=== PATIENT | male | born 1995 | race Caucasian/White ===

== ENCOUNTER 2016-04-25 10:10 | Emergency (ER) | payer SELFPAY ==
--- NOTE | 2016-04-25 10:20 | ER Document Report ---
ED Medical Screen (RME) - General Stated Complaint: SUTURE REMOVAL Time seen by provider: 10:18 Mode of Arrival: Ambulatory Information source: Patient Notes: 21 yo male presents to ed for suture removal to face last Thursday. TRAVEL OUTSIDE OF THE [place] IN LAST 30 DAYS: No - HPI Onset: Last week Onset/Duration: Gradual Quality of pain: Other - sore Severity: Moderate Pain Level: 3 Associated Symptoms: Other - healing laceration to mouth Exacerbated by: Denies Relieved by: Denies Similar symptoms previously: Yes Recently seen / treated by doctor: Yes - Related Data Smoking: Cigarettes, Less than 1 pack/day Frequency of alcohol use: Occasional Drug Abuse: None Allergies/Adverse Reactions: No Known Allergies Allergy (Verified 04/25/16 10:18) Past Medical History Pulmonary Medical History: Reports: Hx Asthma - has not used inhaler since age 11 - Immunizations Hx Diphtheria, Pertussis, Tetanus Vaccination: Yes
[2016-04-25 10:21] VITALS: BP 143/87
--- NOTE | 2016-04-25 10:33 | ER Document Report ---
HPI - HPI Patient complains to provider of: suture removle Onset: Last week Quality of pain: Other - sore Pain Level: 3 Context: 21 yo male here for suture removal upper lip placed 1 week ago after dogbite. No drainage. Associated Symptoms: None Exacerbated by: Denies Relieved by: Denies Similar symptoms previously: No Recently seen / treated by doctor: Yes - ROS ROS below otherwise negative: Yes Systems Reviewed and Negative: Yes All other systems reviewed and negative - REPRODUCTIVE Reproductive: DENIES: : - DERM Skin Color: Normal Past Medical History - General Information source: Patient - Social History Smoking Status: Current Every Day Smoker Chew tobacco use (# tins/day): No Frequency of alcohol use: Occasional Drug Abuse: None Lives with: Parents Family History: None Patient has suicidal ideation: No Patient has homicidal ideation: No Pulmonary Medical History: Reports: Hx Asthma - has not used inhaler since age 11 Surgical Hx: Negative - Immunizations Hx Diphtheria, Pertussis, Tetanus Vaccination: Yes Vertical Provider Document - CONSTITUTIONAL Agree With Documented VS: Yes Exam Limitations: No Limitations General Appearance: No Apparent Distress - INFECTION CONTROL TRAVEL OUTSIDE OF THE [place] IN LAST 30 DAYS: No - HEENT Notes: crusted upper lip suture flap and linear. explained and pt already knew that the flap may not survive, and to not pick at it, let it heal under the scab. - NECK Neck: Supple. negative: Lymphadenopathy-Left, Lymphadenopathy-Right - RESPIRATORY O2 Sat by Pulse Oximetry: 98 - NEURO Level of Consciousness: Awake, Alert, Appropriate - DERM Integumentary: Laceration Course - Vital Signs Vital signs: Temp Pulse Resp BP Pulse Ox 97.9 F 78 20 143/87 H 98 04/25/16 10:19 04/25/16 10:19 04/25/16 10:19 04/25/16 10:19 04/25/16 10:19 Discharge - Discharge Clinical Impression: suture removal Condition: Good Disposition: HOME, SELF-CARE Instructions: Suture Removal Additional Instructions: vaseline to lip to keep it moist let the skin heal on its own do not pick at it to er any conerns
== END 2016-04-25 11:07 | disposition home or self-care (01) ==
LOC: ER 10:10
DX: S01.551D Open bite of lip, subsequent encounter (principal); W54.0XXD Bitten by dog, subsequent encounter; F17.200 Nicotine dependence, unspecified, uncomplicated; J45.909 Unspecified asthma, uncomplicated

== ENCOUNTER 2016-08-16 22:16 | Emergency (ER) | payer OTHER ==
[2016-08-16 23:38] VITALS: BP 147/83
[2016-08-17] MEDS ORDERED: HYDROCODONE/ACETAMINOPHEN 5-325 MG 6 TAB/DSPK PO PRN (00:44)
--- NOTE | 2016-08-17 00:46 | ER Document Report ---
HPI - HPI Patient complains to provider of: left foot injury Pain Level: 4 Context: Patient is a 21-year-old male that comes emergency department for chief complaint of left ankle injury, he states that he hyperextended his foot on the ground yesterday, today he woke up with it swollen and painful. He states he did not have pain right after the injury. He spent today on his feet at the job. He denies any other injuries or areas of pain, denies any daily medications. - REPRODUCTIVE Reproductive: DENIES: : - DERM Skin Color: Normal, [place] Past Medical History - General Information source: Patient - Social History Smoking Status: Never Smoker Frequency of alcohol use: None Drug Abuse: None Lives with: Family Family History: None Patient has suicidal ideation: No Patient has homicidal ideation: No Pulmonary Medical History: Reports: Hx Asthma - has not used inhaler since age 11 Renal/ Medical History: Denies: Hx Peritoneal Dialysis Surgical Hx: Negative - Immunizations Hx Diphtheria, Pertussis, Tetanus Vaccination: Yes Vertical Provider Document - CONSTITUTIONAL General Appearance: WD/WN, No Apparent Distress, Obese - INFECTION CONTROL TRAVEL OUTSIDE OF THE [place] IN LAST 30 DAYS: No - HEENT HEENT: Atraumatic, Normocephalic - NECK Neck: Normal Inspection - RESPIRATORY Respiratory: Breath Sounds Normal, No Respiratory Distress O2 Sat by Pulse Oximetry: 100 - CARDIOVASCULAR Cardiovascular: Regular Rate, Regular Rhythm - GI/ABDOMEN Gastrointestinal: Abdomen Soft, Abdomen Non-Tender - MUSCULOSKELETAL/EXTREMETIES Musculoskeletal/Extremeties: Tender - Left ankle with generalized mild tenderness, there is definite tenderness over the dorsal aspect of the foot in the ATF distribution, normal lower extremity exam otherwise. - NEURO Level of Consciousness: Awake, Alert, Appropriate Motor/Sensory: No Motor Deficit, No Sensory Deficit - DERM Integumentary: Warm, Dry, No Rash Course - Re-evaluation Re-evalutation: Examination consistent with sprain of ATF. X-rays unremarkable. Patient declines any immobilization, agrees to crutches, declines work release note, states satisfaction about x-ray results. - Vital Signs Vital signs: Temp Pulse Resp BP Pulse Ox 98.3 F 70 14 147/83 H 100 08/16/16 23:34 08/16/16 23:34 08/16/16 23:34 08/16/16 23:34 08/16/16 23:34 - Diagnostic Test Radiology reviewed: Image reviewed, Reports reviewed Discharge - Discharge Clinical Impression: Left ankle injury Qualifiers: Encounter type: initial encounter Qualified Code(s): S99.912A - Unspecified injury of left ankle, initial encounter Condition: Stable Disposition: HOME, SELF-CARE Additional Instructions: Examination is consistent with sprain of the ATF ligament. Recommend elevating your leg, applying ice 3-4 times a day for 10-15 minutes, take the naproxen, and use the crutches. Do this for about 3 days or until swelling and pain resolves. If symptoms continue please follow-up with orthopedics referral. Return to emergency department for any concerning or worsening symptoms including redness, severe pain or swelling, etc. Prescriptions: Naproxen 500 mg PO BID #20 tablet
== END 2016-08-17 01:16 | disposition home or self-care (01) ==
LOC: ER 22:16
DX: S99.912A Unspecified injury of left ankle, initial encounter (principal); S99.922A Unspecified injury of left foot, initial encounter; X58.XXXA Exposure to other specified factors, initial encounter
CPT/HCPCS: 99283

== ENCOUNTER 2018-08-18 11:18 | Emergency (ER) | payer SELFPAY ==
[2018-08-18 11:32] VITALS: BP 151/86
[2018-08-18] MEDS ORDERED: LIDOCAINE 2% VISCOUS SOLN 20 ML UDCUP PO ONE (12:15)
[2018-08-18] MEDS ORDERED: PENICILLIN V POTASSIUM 500 MG TABLET PO ONE (12:16)
--- NOTE | 2018-08-18 12:17 | ER Document Report ---
HPI - HPI Time Seen by Provider: 08/18/18 12:01 Pain Level: 5 Notes: This is a 23-year-old male presenting to the emergency department with chief complaint of dental pain. For the last 5 days to the back teeth on the lower left side. Patient denies any fevers or swelling. - EENT EENT: DENIES: Sore Throat, Ear Pain, Eye problems - NEURO Neurology: DENIES: Headache, Weakness, Vision blurred, Dizzinesss / Vertigo - CARDIOVASCULAR Cardiovascular: DENIES: Chest pain - RESPIRATORY Respiratory: DENIES: Trouble Breathing, Coughing - GASTROINTESTINAL Gastrointestinal: DENIES: Abdominal Pain, Black / Bloody Stools - URINARY Urinary: DENIES: Dysuria, Urgency, Frequency - REPRODUCTIVE Reproductive: DENIES: :, Postmenopausal, Abnormal bleeding / discharge - MUSCULOSKELETAL Musculoskeletal: DENIES: Extremity pain Past Medical History - General Information source: Patient - Social History Smoking Status: Current Some Day Smoker Chew tobacco use (# tins/day): No Frequency of alcohol use: Occasional Drug Abuse: None Family History: None Patient has suicidal ideation: No Patient has homicidal ideation: No Pulmonary Medical History: Reports: Hx Asthma - has not used inhaler since age 11 Renal/ Medical History: Denies: Hx Peritoneal Dialysis - Immunizations Hx Diphtheria, Pertussis, Tetanus Vaccination: Yes Vertical Provider Document - CONSTITUTIONAL Notes: PHYSICAL EXAMINATION: GENERAL: Well-appearing, well-nourished and in no acute distress. HEAD: Atraumatic, normocephalic. EYES: Pupils equal round extraocular movements intact, conjunctiva are normal. ENT: Nares patent, no evidence of drainable abscess, there is some erythema noted around teeth #18 and 19. No facial swelling. NECK: Normal range of motion LUNGS: No respiratory distress Musculoskeletal: Normal range of motion NEUROLOGICAL: Normal speech, normal gait. PSYCH: Normal mood, normal affect. SKIN: Warm, Dry, normal turgor, no rashes or lesions noted. - INFECTION CONTROL TRAVEL OUTSIDE OF THE [place] IN LAST 30 DAYS: No Course - Re-evaluation Re-evalutation: Patient's examination is consistent with mild dental infection. Patient will be started on antibiotics and [facility] as he states he does not have dental insurance. - Vital Signs Vital signs: Temp Pulse Resp BP Pulse Ox 98.2 F 74 18 151/86 H 97 08/18/18 11:32 08/18/18 11:32 08/18/18 11:32 08/18/18 11:32 08/18/18 11:32 Discharge - Discharge Clinical Impression: Pain, dental Condition: Stable Disposition: HOME, SELF-CARE Additional Instructions: You have been seen for dental pain. It is very important that you follow-up with a dentist for definitive care. Please return if you develop fever greater than 101, swelling in your face, vomiting, difficulty breathing or swallowing, or any other symptoms that are concerning to you. For pain you should take ibuprofen 800 mg every 8 hours as needed. [facility] [phone] Please call the [facility] to schedule an appointment. Let them know you are seen in the emergency department and placed on antibiotics. Prescriptions: Penicillin V Potassium [Penicillin Vk 500 mg Tablet] 500 mg PO BID #20 tablet
== END 2018-08-18 12:24 | disposition home or self-care (01) ==
LOC: ER 11:18
DX: K08.89 Other specified disorders of teeth and supporting structures (principal); F17.200 Nicotine dependence, unspecified, uncomplicated; J45.909 Unspecified asthma, uncomplicated
CPT/HCPCS: 99283; J3490

== ENCOUNTER 2018-10-07 21:27 | Emergency (ER) | payer SELFPAY ==
[2018-10-07] MEDS ORDERED: MORPHINE SULFATE 10 MG/ML INJ IV ONE (22:06)
[2018-10-07] MEDS ORDERED: ONDANSETRON HCL INJ/PF 4 MG/2 ML SDV IV ONE (22:07)
--- NOTE | 2018-10-07 22:08 | ER Document Report ---
ED Medical Screen (RME) - General Chief Complaint: Lower Abdominal Pain Stated Complaint: ABDOMINAL PAIN Time Seen by Provider: 10/07/18 22:04 Notes: 23-year-old male coming in today with right lower quadrant abdominal pain symptoms been going on for couple days was simply getting worse. Some nausea. No vomiting. No fevers or chills. I have treated and performed a rapid initial assessment of this patient. A comprehensive ED assessment and evaluation of the patient, analysis of test results and completion of medical decision making process will be conducted by additional ED providers. PHYSICAL EXAMINATION: GENERAL: Well-appearing, well-nourished and in no acute distress. A&Ox4. Answers questions appropriately. LUNGS: Breath sounds clear to auscultation bilaterally and equal. No wheezes rales or rhonchi. HEART: Regular rate and rhythm without murmurs, rubs, gallops. ABDOMEN: Tenderness to palpation right lower quadrant. No guarding or rebound Extremities: No cyanosis, clubbing, or edema b/l. NEUROLOGICAL: Normal speech, normal gait. PSYCH: Normal mood, normal affect. TRAVEL OUTSIDE OF THE [place] IN LAST 30 DAYS: No - Related Data Allergies/Adverse Reactions: No Known Allergies Allergy (Verified 08/18/18 11:27) Past Medical History Pulmonary Medical History: Reports: Hx Asthma - has not used inhaler since age 11 Renal/ Medical History: Denies: Hx Peritoneal Dialysis - Immunizations Hx Diphtheria, Pertussis, Tetanus Vaccination: Yes Physical Exam - Vital signs Vitals: Temp Pulse Resp BP Pulse Ox 98.1 F 77 18 149/69 H 98 10/07/18 21:54 10/07/18 21:54 10/07/18 21:54 10/07/18 21:54 10/07/18 21:54 Course - Vital Signs Vital signs: Temp Pulse Resp BP Pulse Ox 98.1 F 77 18 149/69 H 98 10/07/18 21:54 10/07/18 21:54 10/07/18 21:54 10/07/18 21:54 10/07/18 21:54
[2018-10-07] MEDS ORDERED: NORMAL SALINE 1000 ML 1,000 ML IV ONE (22:34)
[2018-10-07 22:56] LABS: ABSOLUTE BASOPHILS # (AUTO) 0.1 10^3/uL (0.0-0.2); ABSOLUTE EOSINOPHILS # (AUTO) 0.2 10^3/uL (0.0-0.6); ABSOLUTE LYMPHOCYTES (AUTO) 2.9 10^3/uL (0.5-4.7); ABSOLUTE MONOCYTES (AUTO) 0.6 10^3/uL (0.1-1.4); ABSOLUTE NEUT (AUTO) 4.8 10^3/uL (1.7-8.2); BASOPHILS % (AUTO) 0.6 % (0-2); EOSINOPHILS % (AUTO) 2.7 % (0-6); HEMATOCRIT 44.8 % (37.9-51.0); HEMOGLOBIN 15.1 g/dL (13.5-17.0); LYMPHOCYTES % (AUTO) 33.6 % (13-45); MEAN CORPUSCULAR HEMOGLOBIN 28.9 pg (27.0-33.4); MEAN CORPUSCULAR HGB CONC 33.8 g/dL (32.0-36.0); MEAN CORPUSCULAR VOLUME 86 fl (80-97); MONOCYTES % (AUTO) 7.4 % (3-13); PLATELET COUNT 242 10^3/uL (150-450); RED BLOOD COUNT 5.24 10^6/uL (4.35-5.55); RED CELL DISTRIBUTION WIDTH 13.1 % (11.5-14.0); SEGMENTED NEUTROPHILS % (AUTO) 55.7 % (42-78); TOTAL CELLS COUNTED % (AUTO) 100 %; WHITE BLOOD COUNT 8.6 10^3/uL (4.0-10.5)
[2018-10-07 23:10] LABS: ALANINE AMINOTRANSFERASE 39 U/L (21-72); ALBUMIN 4.3 g/dL (3.5-5.0); ALKALINE PHOSPHATASE 72 U/L (38-126); ANION GAP 10 (5-19); ASPARTATE AMINO TRANSFERASE 32 U/L (17-59); BILIRUBIN,DIRECT 0.2 mg/dL (0.0-0.4); BILIRUBIN,TOTAL 0.5 mg/dL (0.2-1.3); BLOOD UREA NITROGEN 14 mg/dL (7-20); CALCIUM 9.4 mg/dL (8.4-10.2); CARBON DIOXIDE 30 mmol/L (22-30); CHLORIDE 101 mmol/L (98-107); GLUCOSE 92 mg/dL (75-110); LIPASE 34.8 U/L (23-300); POTASSIUM 4.3 mmol/L (3.6-5.0); SODIUM 140.6 mmol/L (137-145); TOTAL PROTEIN 7.8 g/dL (6.3-8.2)
--- NOTE | 2018-10-08 01:59 | RADIOLOGY REPORT (SQ) ---
CLINICAL HISTORY: rlq pain worse for past few days w/ nausea COMPARISON: None. TECHNIQUE: CT ABDOMEN PELVIS WITH IV CONTRAST on 10/07/2018 10:07 PM CDT This exam was performed according to our departmental dose-optimization program, which includes automated exposure control, adjustment of the mA and/or kV according to patient size and/or use of iterative reconstruction technique. FINDINGS: Lower lungs are clear. Abdomen: Liver is fatty in attenuation. There is no biliary dilatation. Gallbladder is normal in appearance. The pancreas and spleen are normal in appearance. The adrenal glands and kidneys are unremarkable. Abdominal aorta is normal in course and caliber without aneurysm. There is no free air. There is no retroperitoneal adenopathy. Pelvis: There is no bowel obstruction. Urinary bladder is unremarkable. There is no free fluid. Appendix is normal. Skeleton: There are no acute osseous findings. No suspicious bony lesions. IMPRESSION: No acute inflammatory process. No renal or ureteral calculi.
[2018-10-08 03:00] LABS: APPEARANCE,URINE CLEAR; BILIRUBIN,URINE NEGATIVE (NEGATIVE); COLOR,URINE YELLOW; GLUCOSE, URINE NEGATIVE (NEGATIVE); KETONES,URINE NEGATIVE (NEGATIVE); LEUKOCYTE ESTERASE,URINE NEGATIVE (NEGATIVE); NITRITE,URINE NEGATIVE (NEGATIVE); PROTEIN,URINE NEGATIVE (NEGATIVE); URINE SPECIFIC GRAVITY 1.031; UROBILINOGEN,URINE NEGATIVE mg/dL (<2.0)
--- NOTE | 2018-10-08 03:08 | RADIOLOGY REPORT (SQ) ---
CLINICAL HISTORY: fall COMPARISON: None. TECHNIQUE: XR KNEE 3 VIEWS 10/08/2018 2:14 AM CDT FINDINGS: There is no fracture. Joint spaces are preserved. Soft tissues are unremarkable. IMPRESSION: No acute osseous findings.
--- NOTE | 2018-10-08 03:25 | ER Document Report ---
ED General - General Chief Complaint: Lower Abdominal Pain Stated Complaint: ABDOMINAL PAIN Time Seen by Provider: 10/07/18 22:04 Notes: Patient is a 23-year-old male with past medical history of morbid obesity, no other chronic medical problems, no prior abdominal surgical history presents with 36 hours of intermittent right lower abdominal pain with associated nausea. Pain is described as intermittent, throbbing, aching pain to his right lower abdomen. Nothing seems to improve or worsen this pain. Does regarded as being moderate to severe in intensity. Denies history of similar symptoms in the past. Has not seen his primary doctor regarding today's concerns. Has had nausea but no vomiting. No fever or constitutional symptoms. Of note while getting a blood draw in triage the patient did have an episode of syncope falling and striking his left knee. He is complaining of some ongoing pain to the knee at time of my evaluation. TRAVEL OUTSIDE OF THE [place] IN LAST 30 DAYS: No - Related Data Allergies/Adverse Reactions: No Known Allergies Allergy (Verified 08/18/18 11:27) Past Medical History - General Information source: Patient - Social History Smoking Status: Never Smoker Chew tobacco use (# tins/day): No Frequency of alcohol use: None Drug Abuse: None Family History: Reviewed & Not Pertinent Patient has suicidal ideation: No Patient has homicidal ideation: No Pulmonary Medical History: Reports: Hx Asthma - has not used inhaler since age 11 Renal/ Medical History: Denies: Hx Peritoneal Dialysis - Immunizations Hx Diphtheria, Pertussis, Tetanus Vaccination: Yes Review of Systems - Review of Systems Notes: Constitutional: Negative for fever. HENT: Negative for sore throat. Eyes: Negative for visual changes. Cardiovascular: Negative for chest pain. Respiratory: Negative for shortness of breath. Gastrointestinal: Positive for right lower abdominal pain and nausea Genitourinary: Negative for dysuria. Musculoskeletal: Positive for left knee pain Skin: Negative for rash. Neurological: Negative for headaches, weakness or numbness. 10 point ROS negative except as marked above and in HPI. Physical Exam - Vital signs Vitals: Temp Pulse Resp BP Pulse Ox 98.1 F 77 18 149/69 H 98 10/07/18 21:54 10/07/18 21:54 10/07/18 21:54 10/07/18 21:54 10/07/18 21:54 Interpretation: Hypertensive Notes: PHYSICAL EXAMINATION: GENERAL: Well-appearing, well-nourished and in no acute distress. HEAD: Atraumatic, normocephalic. EYES: Pupils equal round and reactive to light, extraocular movements intact, sclera anicteric, conjunctiva are normal. ENT: nares patent, oropharynx clear without exudates. Moist mucous membranes. NECK: Normal range of motion, supple without lymphadenopathy LUNGS: Breath sounds clear to auscultation bilaterally and equal. No wheezes rales or rhonchi. HEART: Regular rate and rhythm without murmurs ABDOMEN: Soft, morbidly obese abdomen, mild diffuse tenderness to the right lower and right mid abdomen but otherwise nontender, normoactive bowel sounds. No guarding, no rebound. No masses appreciated. EXTREMITIES: Normal range of motion including at the left knee, no pitting or edema. No cyanosis. NEUROLOGICAL: No focal neurological deficits. Moves all extremities spontaneously and on command. PSYCH: Normal mood, normal affect. SKIN: Warm, Dry, normal turgor, no rashes or lesions noted. Course - Re-evaluation Re-evalutation: 10/08/18 03:28 Patient presents with right lower quadrant abdominal pain with associated nausea the past 2 days. Abdominal exam is relatively benign, mild tenderness the right lower quadrant the time of my evaluation. Exam and history not definitive for appendicitis. CT scan of the abdomen and pelvis ordered in triage, this does not demonstrate any evidence of acute appendicitis. The patient also apparently had a syncopal event in triage during blood draw, vasovagal in origin. Did strike his left knee during the fall. X-ray of the knee without any evidence of fracture. Labs otherwise unremarkable. Patient symptomatically improved at the time of my evaluation. I have explained to the patient that we do not have a definitive diagnosis as the cause of his symptoms today and that he needs to have a very low threshold to return to the emergency department for reassessment. At this time will discharge with return precautions and follow-up recommendations. Verbal discharge instructions given a the bedside and opportunity for questions given. Medication warnings reviewed. Patient is in agreement with this plan and has verbalized understanding of return precautions and the need for primary care follow-up in the next 24-72 hours. - Vital Signs Vital signs: Temp Pulse Resp BP Pulse Ox 98.1 F 77 18 149/69 H 98 10/07/18 21:54 10/07/18 21:54 10/07/18 21:54 10/07/18 21:54 10/07/18 21:54 - Laboratory Result Diagrams: 10/07/18 22:36 10/07/18 22:36 - Diagnostic Test Radiology reviewed: Image reviewed, Reports reviewed Radiology results interpreted by me: 10/08/18 03:29 Left knee x-ray: No acute fracture or dislocation Discharge - Discharge Clinical Impression: Nausea Abdominal pain Qualifiers: Abdominal location: unspecified location Qualified Code(s): R10.9 - Unspecified abdominal pain Left knee injury Qualifiers: Encounter type: initial encounter Qualified Code(s): S89.92XA - Unspecified injury of left lower leg, initial encounter Condition: Good Disposition: HOME, SELF-CARE Additional Instructions: You have been seen in the Emergency Department (ED) for abdominal pain. Your evaluation did not identify a clear cause of your symptoms but was generally reassuring. Please follow up with your doctor as soon as possible regarding today's emergent visit and the symptoms that are bothering you. Return to the ED if your abdominal pain worsens or fails to improve, you develop bloody vomiting, bloody diarrhea, you are unable to tolerate fluids due to vomiting, fever greater than 101, or other symptoms that concern you. Your left knee x-ray is also normal. You may take ibuprofen or Tylenol as needed for discomfort. Follow-up with your primary doctor if the pain in your knee is not improving within 1 week as you may need referral to orthopedic surgery or an MRI of the knee.
[2018-10-08 04:27] VITALS: BP 147/77
== END 2018-10-08 04:35 | disposition home or self-care (01) ==
LOC: ER 21:27
DX: R10.31 Right lower quadrant pain (principal); R10.813 Right lower quadrant abdominal tenderness; R10.819 Abdominal tenderness, unspecified site; R11.0 Nausea; R55 Syncope and collapse; S89.92XA Unspecified injury of left lower leg, initial encounter; M25.562 Pain in left knee; W19.XXXA Unspecified fall, initial encounter; Y93.89 Activity, other specified; Y92.238 Other place in hospital as the place of occurrence of the external cause; J45.909 Unspecified asthma, uncomplicated
CPT/HCPCS: 99284; 96361; 96374; 96375; 36415; 83690; 85025; 80053; 81001; 73562; 74177; J2270; J2405; J7030

== ENCOUNTER 2019-01-12 18:18 | Emergency (ER) | payer SELFPAY ==
[2019-01-12 18:35] VITALS: BP 153/87
[2019-01-12] MEDS ORDERED: PENICILLIN V POTASSIUM 500 MG TABLET PO ONE (18:58)
--- NOTE | 2019-01-12 19:02 | ER Document Report ---
HPI - HPI Patient complains to provider of: dental pain Time Seen by Provider: 01/12/19 18:56 Onset: Yesterday Onset/Duration: Sudden Quality of pain: Achy Severity: Mild Pain Level: 1 Context: Patient presents to the emergency department with complaints of left lower dental pain that started yesterday. Reports he has a hole in the tooth. Also reports that had a pustule that popped. Patient complains that when air hits the tooth it hurts. Denies fever vomiting diarrhea. Patient does not have dental insurance. Associated Symptoms: None Exacerbated by: Other - air Relieved by: Denies Similar symptoms previously: No Recently seen / treated by doctor: No - REPRODUCTIVE Reproductive: DENIES: : Past Medical History - General Information source: Patient - Social History Smoking Status: Current Every Day Smoker Cigarette use (# per day): Yes Chew tobacco use (# tins/day): No Frequency of alcohol use: Occasional Drug Abuse: None Family History: Reviewed & Not Pertinent Patient has suicidal ideation: No Patient has homicidal ideation: No Pulmonary Medical History: Reports: Hx Asthma - has not used inhaler since age 11 Renal/ Medical History: Denies: Hx Peritoneal Dialysis Surgical Hx: Negative - Immunizations Hx Diphtheria, Pertussis, Tetanus Vaccination: Yes Vertical Provider Document - CONSTITUTIONAL Agree With Documented VS: Yes Exam Limitations: No Limitations General Appearance: WD/WN, No Apparent Distress - INFECTION CONTROL TRAVEL OUTSIDE OF THE [place] IN LAST 30 DAYS: No - HEENT HEENT: Atraumatic, Normocephalic. negative: Pharyngeal Erythema Mouth Diagram: 1 - Patient complains of pain, erythema noted around the tooth on the gums no pustule patient opens his mouth wide good airway no trismus no ludwigs - NECK Neck: Normal Inspection, Supple. negative: Lymphadenopathy-Left, Lymphadenopathy-Right - RESPIRATORY Respiratory: No Respiratory Distress - CARDIOVASCULAR Cardiovascular: Regular Rate - MUSCULOSKELETAL/EXTREMETIES Musculoskeletal/Extremeties: MAEW, FROM - NEURO Level of Consciousness: Awake, Alert, Appropriate Motor/Sensory: No Motor Deficit - DERM Integumentary: Warm, Dry Course - Re-evaluation Re-evalutation: 01/12/19 19:10 Patient instructed on antibiotics. Patient requested something from the $4 list. He was instructed on Baldom[place] K. Also given a written resource list of dentist that may be able to help him. He was instructed to follow-up with the dentist take antibiotics as prescribed and return for any concerns. He verbalized understanding to all instructions. Dictation of this chart was performed using voice recognition software; therefore, there may be some unintended grammatical errors. - Vital Signs Vital signs: Temp Pulse Resp BP Pulse Ox 98.0 F 80 18 153/87 H 99 01/12/19 18:34 01/12/19 18:34 01/12/19 18:34 01/12/19 18:34 01/12/19 18:34 Discharge - Discharge Clinical Impression: Pain, dental Condition: Stable Disposition: HOME, SELF-CARE Instructions: [facility], Dentist, Use of [id number] Ibuprofen ([facility]), Penicillin V K ([facility]), Toothache ([facility]) Additional Instructions: *You have been evaluated for dental pain *Take medications as prescribed Take ibuprofen for pain as indicated *Follow up with dentist as soon as possible *Return to ED for worsening condition, changes, needs Monitor your blood pressure. Your blood pressure was elevated today. This may be because you were anxious, in pain or because you need medication. It is important to follow up with your primary care provider for full evaluation. Prescriptions: Penicillin V Potassium [Penicillin Vk 500 mg Tablet] 500 mg PO BID #20 tablet Forms: Elevated Blood Pressure
== END 2019-01-12 19:01 | disposition home or self-care (01) ==
LOC: ER 18:18
DX: K08.89 Other specified disorders of teeth and supporting structures (principal); F17.210 Nicotine dependence, cigarettes, uncomplicated
CPT/HCPCS: 99282

== ENCOUNTER 2019-01-19 09:38 | Emergency (ER) | payer SELFPAY ==
[2019-01-19 09:42] VITALS: BP 148/72
[2019-01-19] MEDS ORDERED: KETOROLAC TROMETHAMINE 60 MG/2 ML SDV IM ONE (09:46)
[2019-01-19] MEDS ORDERED: DEXAMETHASONE SOD PHOS INJ 10 MG/1 ML VIAL IM ONE (09:46)
--- NOTE | 2019-01-19 09:48 | ER Document Report ---
ED Medical Screen (RME) - General Chief Complaint: Sore Throat Stated Complaint: SORE THROAT Time Seen by Provider: 01/19/19 09:42 Mode of Arrival: Ambulatory Information source: Patient Notes: 23-year-old male presents to ED for congestion right ear pain sore throat and been sick for about a week. He states he was seen here last week for toothache and started on penicillin. He states he was taking it as ordered until he stopped yesterday because he started feeling sick and he thought maybe he needed something else for his pain and discomfort. I told him he needed to complete his penicillin and we would run test on today's illness. He does smoke for 5 cigarettes a day drinks socially he lives with her family has a history of asthma no other medical history. Patient is alert oriented respirations regular and unlabored. He does have very large inflamed tonsils strep and mono test have been sent. [employer] TRAVEL OUTSIDE OF THE [place] IN LAST 30 DAYS: No - Related Data Allergies/Adverse Reactions: No Known Allergies Allergy (Verified 01/12/19 18:52) Past Medical History - Social History Chew tobacco use (# tins/day): No Frequency of alcohol use: Social Drug Abuse: None Pulmonary Medical History: Reports: Hx Asthma - has not used inhaler since age 11 Renal/ Medical History: Denies: Hx Peritoneal Dialysis - Immunizations Hx Diphtheria, Pertussis, Tetanus Vaccination: Yes Physical Exam - Vital signs Vitals: Temp Pulse Resp BP Pulse Ox 98.8 F 86 16 148/72 H 98 01/19/19 09:41 01/19/19 09:41 01/19/19 09:41 01/19/19 09:41 01/19/19 09:41 Course - Vital Signs Vital signs: Temp Pulse Resp BP Pulse Ox 98.8 F 86 16 148/72 H 98 01/19/19 09:41 01/19/19 09:41 01/19/19 09:41 01/19/19 09:41 01/19/19 09:41
--- NOTE | 2019-01-19 10:12 | ER Document Report ---
ED General - General Chief Complaint: Sore Throat Stated Complaint: SORE THROAT Time Seen by Provider: 01/19/19 09:42 Mode of Arrival: Ambulatory TRAVEL OUTSIDE OF THE [place] IN LAST 30 DAYS: No - HPI Notes: 23-year-old male presents with sore throat congestion mild cough body aches. Gradual onset of the last day and 1/2 to 2 days. Moderate intensity, nonradiating. No fever. No other modifying factors, no other associated symptoms, no other provocative or palliative factors. - Related Data Allergies/Adverse Reactions: No Known Allergies Allergy (Verified 01/12/19 18:52) Past Medical History - General Information source: Patient - Social History Smoking Status: Current Every Day Smoker Chew tobacco use (# tins/day): No Frequency of alcohol use: Social Drug Abuse: None Family History: Reviewed & Not Pertinent Patient has suicidal ideation: No Patient has homicidal ideation: No - Medical History Medical History: Negative Pulmonary Medical History: Reports: Hx Asthma - has not used inhaler since age [age] Renal/ Medical History: Denies: Hx Peritoneal Dialysis - Immunizations Hx Diphtheria, Pertussis, Tetanus Vaccination: Yes Review of Systems - Review of Systems Notes: Review of systems as in the history of present illness, otherwise negative x 10 systems. Physical Exam - Vital signs Vitals: Temp Pulse Resp BP Pulse Ox 98.8 F 86 16 148/72 H 98 01/19/19 09:41 01/19/19 09:41 01/19/19 09:41 01/19/19 09:41 01/19/19 09:41 - Notes Notes: General: Well developed . HEENT: Normocephalic, atraumatic. Pupils equal round reactive to light. No JVD. Pharyngeal injection, no tonsillar purulence. No anterior cervical adenopathy. Chest: No trauma. Respiratory: Good air exchange, normal excursion. Cardiac: Regular rhythm. No murmurs or gallops. Abdomen: Soft, benign. Nondistended. Nontender. Back: No asymmetry or gross abnormality. Motor: Grossly normal power and tone. Neurologic: Alert, nonfocal. Cranial nerves II-12 are intact. Sensation intact. Vascular: Well perfused. Normal peripheral pulses. Skin: No petechiae or purpura. Course - Re-evaluation Re-evalutation: 01/19/19 10:15 Patient was evaluated by the [facility] provider prior to my evaluation. Studies / interventions have been ordered by this provider and may still be pending. Well-appearing male with strong pretest probability for viral pharyngitis. Low Centor score. Of note, rapid strep screen is negative. We will treat with supportive care, increase fluids, Tylenol, outpatient follow- up. - Vital Signs Vital signs: Temp Pulse Resp BP Pulse Ox 98.8 F 86 16 148/72 H 98 01/19/19 09:41 01/19/19 09:41 01/19/19 09:41 01/19/19 09:41 01/19/19 09:41 Discharge - Discharge Clinical Impression: Pharyngitis Qualifiers: Pharyngitis/tonsillitis etiology: unspecified etiology Qualified Code(s): J02.9 - Acute pharyngitis, unspecified Condition: Good Disposition: HOME, SELF-CARE Instructions: Sore Throat ([facility])
== END 2019-01-19 10:42 | disposition home or self-care (01) ==
LOC: ER 09:38
DX: J02.9 Acute pharyngitis, unspecified (principal); R05 Cough; F17.200 Nicotine dependence, unspecified, uncomplicated; J45.909 Unspecified asthma, uncomplicated
CPT/HCPCS: 87070; 87880; 99283

== ENCOUNTER 2019-05-20 11:35 | Emergency (ER) | payer SELFPAY | END 2019-05-20 13:00 | disposition left against medical advice (07) | LOC: ER 11:35 | DX: Z53.21 Procedure and treatment not carried out due to patient leaving prior to being seen by health care provider (principal) ==

== ENCOUNTER 2019-05-23 01:15 | Emergency (ER) | payer SELFPAY ==
[2019-05-23] MEDS ORDERED: ACETAMINOPHEN 325 MG TABLET PO ONE (01:26)
[2019-05-23] MEDS ORDERED: PENICILLIN V POTASSIUM 500 MG TABLET PO ONE (02:08)
--- NOTE | 2019-05-23 02:13 | ER Document Report ---
ED General - General Chief Complaint: Toothache Stated Complaint: MOUTH PAIN,EAR PAIN Time Seen by Provider: 05/23/19 01:52 TRAVEL OUTSIDE OF THE [place] IN LAST 30 DAYS: No - HPI Notes: Patient is a 24-year-old gentleman who presents to the emergency department for evaluation of bilateral ear pain as well as tooth pain. He states he had bilateral leg pain for about 2 weeks. Denies any fevers or chills. No nasal congestion or cough. He also complains of pain in his mouth from an abscess. He does not have a dentist. He states that pain is been present for about a week. He states is worsened with cold, nothing seems to make it better. He denies any fevers or chills. No swelling under his tongue. No difficulty swallowing or breathing. - Related Data Allergies/Adverse Reactions: No Known Allergies Allergy (Verified 01/12/19 18:52) Home Medications: None Past Medical History - General Information source: Patient - Social History Smoking Status: Current Every Day Smoker Family History: Reviewed & Not Pertinent Patient has suicidal ideation: No Patient has homicidal ideation: No Pulmonary Medical History: Reports: Hx Asthma - has not used inhaler since age 11 Renal/ Medical History: Denies: Hx Peritoneal Dialysis - Immunizations Hx Diphtheria, Pertussis, Tetanus Vaccination: Yes Review of Systems - Review of Systems Constitutional: No symptoms reported EENT: See HPI Cardiovascular: No symptoms reported Respiratory: No symptoms reported Gastrointestinal: No symptoms reported Genitourinary: No symptoms reported Musculoskeletal: No symptoms reported Skin: No symptoms reported Neurological/Psychological: No symptoms reported Physical Exam - Vital signs Vitals: Temp Pulse Resp BP Pulse Ox 97.8 F 82 20 152/85 H 99 05/23/19 01:19 05/23/19 01:19 05/23/19 01:19 05/23/19 01:19 05/23/19 01:19 - Notes Notes: Is a 24-year-old male who appears his stated age in no acute distress. Head is normocephalic and atraumatic, pupils are equal round, reactive to light. Nares are patent. Bilateral external auditory canals are open with some cerumen. TMs are pearly an, good light reflex, no effusion. Oral mucosa is moist. Dentition is overall in very poor condition. He has small, superficial dental abscesses measuring approximately 3 mm, noted between tooth 23 and 22 in the left mandible. I do not appreciate any other fluctuance or focal areas of edema. No swelling under the tongue. No submandibular adenopathy. Heart is regular rate and rhythm without murmur, lungs are clear to oscillation bilaterally. Course - Re-evaluation Re-evalutation: 05/23/19 02:10 Patient presents to the emergency department for evaluation. I do not see any signs of significant infection in the ears causing his otalgia. It is likely secondary to dental issues that is ear pain is occurring. He voiced understanding to this. I also explained to the patient he needs to follow-up with a dentist as soon as possible. We will give him referral onto the dental clinics. I also explained to him the [facility] will take payment plans. He is given Toradol and penicillin here. I will send her home with a prescription for penicillin as well as some Naprosyn. He is to return to the ED with worsening or new concerning symptoms of any sort. - Vital Signs Vital signs: Temp Pulse Resp BP Pulse Ox 97.8 F 82 20 152/85 H 99 05/23/19 01:19 05/23/19 01:19 05/23/19 01:19 05/23/19 01:19 05/23/19 01:19 Discharge - Discharge Clinical Impression: Otalgia, bilateral, Dental abscess Condition: Stable Disposition: HOME, SELF-CARE Instructions: Abscess ([facility]), [facility], Penicillin V K ([facility]), Toothache ([facility])
[2019-05-23] MEDS: KETOROLAC TROMETHAMINE 60 MG/2 ML SDV IM ONE ×2 (02:46→02:56)
[2019-05-23 02:49] VITALS: BP 142/69
== END 2019-05-23 02:56 | disposition home or self-care (01) ==
LOC: ER 01:15
DX: K04.7 Periapical abscess without sinus (principal); K08.89 Other specified disorders of teeth and supporting structures; H61.23 Impacted cerumen, bilateral; H92.03 Otalgia, bilateral; M79.604 Pain in right leg; M79.605 Pain in left leg; J45.909 Unspecified asthma, uncomplicated; F17.200 Nicotine dependence, unspecified, uncomplicated
CPT/HCPCS: 99282; J1885

== ENCOUNTER 2019-06-29 22:34 | Emergency (ER) | payer SELFPAY ==
[2019-06-29 22:58] VITALS: BP 144/87
[2019-06-30] MEDS ORDERED: CIPROFLOXACIN HCL/DEXAMETH OTIC DROP 7.5 ML AS ONE (00:08)
--- NOTE | 2019-06-30 00:15 | ER Document Report ---
HPI - HPI Time Seen by Provider: 06/30/19 00:01 Pain Level: 4 Notes: Patient is a 24-year-old male who presents complaining of bilateral ear pain, right greater than left, for the past 1 to 2 weeks. Patient states that he did have dental pain originally and was taking penicillin for it. He had leftover penicillin continued for his ear. Patient states that he does use Q-tips and does have pain to the canal. Denies drug allergies. No other recent illness. He is able to eat and drink without difficulty. He is urinating normally. Denies drug allergies. Denies any headache, fever, neck pain, URI, sore throat, chest pain, palpitations, syncope, cough, shortness of breath, wheeze, dyspnea, abdominal pain, nausea/vomiting/diarrhea, urinary retention, dysuria, hematuria, or rash. - ROS Systems Reviewed and Negative: Yes All other systems reviewed and negative - REPRODUCTIVE Reproductive: DENIES: : Past Medical History - Social History Smoking Status: Current Every Day Smoker Chew tobacco use (# tins/day): No Frequency of alcohol use: Occasional Drug Abuse: Marijuana Family History: Reviewed & Not Pertinent Patient has suicidal ideation: No Patient has homicidal ideation: No Pulmonary Medical History: Reports: Hx Asthma - has not used inhaler since age 11 Renal/ Medical History: Denies: Hx Peritoneal Dialysis - Immunizations Hx Diphtheria, Pertussis, Tetanus Vaccination: Yes Vertical Provider Document - CONSTITUTIONAL Agree With Documented VS: Yes Notes: PHYSICAL EXAMINATION: GENERAL: Well-appearing, well-nourished and in no acute distress. A&Ox4. Answers questions appropriately. Moves comfortably w/o notable distress HEAD: Atraumatic, normocephalic. EYES: Pupils equal round and reactive to light, extraocular movements intact, sclera anicteric, conjunctiva are normal. ENT: Rt EAC tender, discharge w moderate swelling/occlusion. Lt EAC also has scant purulence w/o occlusion or swelling. + Tenderness to tragus b/l. No mastoid tenderness bilaterally. TM's difficult to adequately assess for any perforation. Nares patent and without discharge. oropharynx no erythema without exudates. No tonsilar hypertrophy without erythema or exudate. No palatine shift. Uvula midline. No tongue protrusion. No drooling, hoarseness, or airway compromise. Moist mucous membranes. No sinus tenderness. NECK: Normal range of motion, supple without lymphadenopathy. No rigidity/meningismus. LUNGS: Breath sounds clear to auscultation bilaterally and equal. No wheezes rales or rhonchi. No retractions HEART: Regular rate and rhythm without murmurs, rubs, gallops. NEUROLOGICAL: Normal speech, normal gait. PSYCH: Normal mood, normal affect. SKIN: Warm, Dry, normal turgor, no rashes or lesions noted. - INFECTION CONTROL TRAVEL OUTSIDE OF THE [place] IN LAST 30 DAYS: No Course - Re-evaluation Re-evalutation: 06/30/19 00:21 Patient is an afebrile, well-hydrated, 24-year-old male who presents with acute otitis externa of both ears. Vitals are acceptable without significant tachycardia, tachypnea, or hypoxia. PE is otherwise unremarkable. Patient is nontoxic-appearing and is tolerating p.o. without difficulty. Ear wick was placed successfully without any complications and Ciprodex applied. No further work-up warranted. Low suspicion for any sepsis, meningitis, severe dehydration, respiratory compromise, mastoiditis, or other systemic emergent condition at this time. Patient is aware that condition can change from initial presentation and he needs to monitor symptoms closely and seek medical attention with any acute changes. We did also place on Augmentin p.o. as we are unsure if there is any perforation of his TM associated. Recheck with your PCM in 3 to 5 days. Consider consult with ENT. Return to the ED with any other worsening/concerning symptoms. Patient is in agreement. - Vital Signs Vital signs: Temp Pulse Resp BP Pulse Ox 99.2 F 86 17 144/87 H 98 06/29/19 22:57 06/29/19 22:57 06/29/19 22:57 06/29/19 22:57 06/29/19 22:57 Discharge - Discharge Clinical Impression: Acute otitis externa of both ears Qualifiers: Otitis externa type: unspecified type Qualified Code(s): H60.503 - Unspecified acute noninfective otitis externa, bilateral Condition: Stable Disposition: HOME, SELF-CARE Instructions: Using Ear Drops with a Wick ([facility]), Otitis Externa ([facility]) Additional Instructions: Maintain adequate fluid intake Take meds as directed tylenol/ibuprofen as needed Avoid Q-tips in the ears over the counter cold medication as needed for symptoms F/u: with your PCM in 2-3 days for a recheck Consider consult with ENT Return to the ED with any fever, dizziness, tinnitus, headaches, worsening pain, chest pain, palpitations, syncope, neck pain/stiffness, shortness of breath, wheezing, drooling, trouble swallowing/breathing, abdominal pain, n/v/d, rash, or worsening/concerning symptoms otherwise. Prescriptions: Amoxicillin/Potassium Clav [Augmentin 875-125 Tablet] 1 tab PO BID #20 tab Forms: Elevated Blood Pressure, Smoking Cessation Education Referrals: BENSON KIDD DO [ASSOCIATE] - Follow up as needed
== END 2019-06-30 00:20 | disposition home or self-care (01) ==
LOC: ER 22:34
DX: H60.503 Unspecified acute noninfective otitis externa, bilateral (principal); H92.03 Otalgia, bilateral; K08.9 Disorder of teeth and supporting structures, unspecified; F17.200 Nicotine dependence, unspecified, uncomplicated
CPT/HCPCS: 99282; J3490

== ENCOUNTER 2019-11-06 22:08 | Emergency (ER) | payer SELFPAY ==
--- NOTE | 2019-11-07 00:56 | ER Document Report ---
ED General - General Chief Complaint: Chest Pain Stated Complaint: CHEST TIGHTNESS/SHARP PAINS NEAR HEART Time Seen by Provider: 11/07/19 00:46 TRAVEL OUTSIDE OF THE [place] IN LAST 30 DAYS: No - HPI Patient complains to provider of: chest pain Notes: 24 y/o presenting to ED for evaluation of left sided chest pain he tells me that he has chest pain often and that he has made a number of lifestyle changes over the last 3 weeks (cutting calories, increased exercise, and stopped smoking) and since all these changes, his pain is worse he does admit that the pain is a sharp pain worsened by certain movements he denies sob or bartholomew he denies h/o pe or dvt he denies recent hospitalizations or immobilizations - Related Data Allergies/Adverse Reactions: No Known Allergies Allergy (Verified 01/12/19 18:52) Past Medical History - Social History Smoking Status: Former Smoker Frequency of alcohol use: Occasional Drug Abuse: Marijuana Family History: Reviewed & Not Pertinent Patient has homicidal ideation: No Pulmonary Medical History: Reports: Hx Asthma - has not used inhaler since age 11 Renal/ Medical History: Denies: Hx Peritoneal Dialysis - Immunizations Hx Diphtheria, Pertussis, Tetanus Vaccination: Yes Review of Systems - Review of Systems Constitutional: No symptoms reported EENT: No symptoms reported Cardiovascular: Chest pain Respiratory: No symptoms reported Gastrointestinal: No symptoms reported Genitourinary: No symptoms reported Male Genitourinary: No symptoms reported Musculoskeletal: No symptoms reported Skin: No symptoms reported Hematologic/Lymphatic: No symptoms reported Neurological/Psychological: No symptoms reported Physical Exam - Vital signs Vitals: Temp Pulse Resp BP Pulse Ox 98.5 F 76 16 154/75 H 98 11/06/19 22:21 11/06/19 22:21 11/06/19 22:21 11/06/19 22:21 11/06/19 22:21 Interpretation: Normal - General General appearance: Appears well, Alert, Other - obese - HEENT Head: Normocephalic, Atraumatic Eyes: Normal Pupils: PERRL - Respiratory Respiratory status: No respiratory distress Chest status: Nontender Breath sounds: Normal Chest palpation: Normal - Cardiovascular Rhythm: Regular Heart sounds: Normal auscultation Murmur: No Notes: chest wall pain on exam - Abdominal Inspection: Normal Distension: No distension Bowel sounds: Normal Tenderness: Nontender Organomegaly: No organomegaly - Back Back: Normal, Nontender - Extremities General upper extremity: Normal inspection, Nontender, Normal color, Normal ROM, Normal temperature General lower extremity: Normal inspection, Nontender, Normal color, Normal ROM, Normal temperature, Normal weight bearing. No: Gilbert's sign - Neurological Neuro grossly intact: Yes Cognition: Normal Orientation: AAOx4 Burns Coma Scale Eye Opening: Spontaneous Burns Coma Scale Verbal: Oriented Brit Coma Scale Motor: Obeys Commands Brit Coma Scale Total: 15 Speech: Normal Motor strength normal: LUE, RUE, LLE, RLE Sensory: Normal - Psychological Associated symptoms: Normal affect, Normal mood - Skin Skin Temperature: Warm Skin Moisture: Dry Skin Color: Normal Course - Re-evaluation Re-evalutation: 11/07/19 00:55 ekg is nonishcemic perc neg for PE nursing has drawn chest pain labs so will await labs for dispo although by history this is msk related pain EKG - NSR, rate 70, no ST segment changes, no T wave changes HEART - 0 11/07/19 02:23 labs reassuring will dc w/ dx of msk chest pain - Vital Signs Vital signs: Temp Pulse Resp BP Pulse Ox 98.5 F 76 16 154/75 H 98 11/07/19 00:16 11/06/19 22:21 11/06/19 22:21 11/06/19 22:21 11/06/19 22:21 - Laboratory Result Diagrams: 11/07/19 01:07 11/07/19 01:07 Laboratory results interpreted by me: 11/07/19 01:07 ALT 68 H Creatine Kinase 371 H - Diagnostic Test Radiology reviewed: Image reviewed, Reports reviewed - EKG Interpretation by Tn EKG shows normal: Sinus rhythm Rate: Normal Rhythm: NSR Additional EKG results interpreted by me: 11/07/19 02:[address] or T wave changes Discharge - Discharge Clinical Impression: Chest wall pain Condition: Stable Disposition: HOME, SELF-CARE Instructions: Chest Pain of Unclear Cause ([facility]), Chest Wall Pain ([facility]) Additional Instructions: Follow up with primary care provider as an outpatient Return to the ED with worsening symptoms or concerns
[2019-11-07 01:20] LABS: ABSOLUTE EOSINOPHILS # (AUTO) 0.3 10^3/uL (0.0-0.6); ABSOLUTE LYMPHOCYTES (AUTO) 2.5 10^3/uL (0.5-4.7); ABSOLUTE MONOCYTES (AUTO) 0.7 10^3/uL (0.1-1.4); ABSOLUTE NEUT (AUTO) 3.7 10^3/uL (1.7-8.2); BASOPHILS % (AUTO) 0.6 % (0-2); EOSINOPHILS % (AUTO) 3.9 % (0-6); HEMATOCRIT 44.8 % (37.9-51.0); HEMOGLOBIN 14.9 g/dL (13.5-17.0); LYMPHOCYTES % (AUTO) 34.5 % (13-45); MEAN CORPUSCULAR HEMOGLOBIN 29.3 pg (27.0-33.4); MEAN CORPUSCULAR HGB CONC 33.3 g/dL (32.0-36.0); MEAN CORPUSCULAR VOLUME 88 fl (80-97); MONOCYTES % (AUTO) 9.7 % (3-13); PLATELET COUNT 219 10^3/uL (150-450); RED BLOOD COUNT 5.09 10^6/uL (4.35-5.55); SEGMENTED NEUTROPHILS % (AUTO) 51.3 % (42-78); TOTAL CELLS COUNTED % (AUTO) 100 %; WHITE BLOOD COUNT 7.3 10^3/uL (4.0-10.5)
[2019-11-07 01:32] LABS: ALBUMIN 4.2 g/dL (3.5-5.0); ALKALINE PHOSPHATASE 59 U/L (38-126); ANION GAP 9 (5-19); ASPARTATE AMINO TRANSFERASE 49 U/L (17-59); BILIRUBIN,TOTAL 0.5 mg/dL (0.2-1.3); BLOOD UREA NITROGEN 14 mg/dL (7-20); CALCIUM 9.5 mg/dL (8.4-10.2); CARBON DIOXIDE 28 mmol/L (22-30); CHLORIDE 104 mmol/L (98-107); CREATINE KINASE 371 U/L (55-170); GLUCOSE 99 mg/dL (75-110); POTASSIUM 4.1 mmol/L (3.6-5.0); TOTAL PROTEIN 7.7 g/dL (6.3-8.2)
--- NOTE | 2019-11-07 01:32 | RADIOLOGY REPORT (SQ) ---
Chest 2 view on 11/07/2019 at 1:17 AM CLINICAL INDICATION: Chest pain COMPARISON: 06/30/2012 FINDINGS: The lungs are clear. Cardiac, hilar and mediastinal contours are within normal limits. Pulmonary vascularity is within normal limits. No bony abnormality is noted. IMPRESSION: No active disease.
[2019-11-07 01:43] LABS: CREATINE KINASE MB 1.82 ng/mL (<4.55)
[2019-11-07 01:55] LABS: TROPONIN I < 0.012 ng/mL
[2019-11-07 02:46] VITALS: BP 150/72
--- NOTE | 2019-11-07 07:58 | EKG REPORT ---
SEVERITY:- NORMAL ECG - SINUS RHYTHM : Confirmed by: Deirdre Molina 07-Nov-2019 07:57:05
== END 2019-11-07 02:46 | disposition home or self-care (01) ==
LOC: ER 22:08
DX: R07.89 Other chest pain (principal)
CPT/HCPCS: 36415; 71046; 80053; 82550; 82553; 84484; 85025; 93005; 93010; 99285

== ENCOUNTER 2020-02-03 13:11 | Emergency (ER) | payer SELFPAY ==
[2020-02-03] MEDS ORDERED: CETIRIZINE 10 MG TABLET PO ONE (13:59)
--- NOTE | 2020-02-03 14:03 | RADIOLOGY REPORT (SQ) ---
EXAM DESCRIPTION: CHEST SINGLE VIEW IMAGES COMPLETED DATE/TIME: 02/03/2020 12:43 pm REASON FOR STUDY: SOB COMPARISON: 11/07/2019 EXAM PARAMETERS: NUMBER OF VIEWS: One view. TECHNIQUE: Single frontal radiographic view of the chest acquired. RADIATION DOSE: NA LIMITATIONS: None. FINDINGS: LUNGS AND PLEURA: No opacities, masses or pneumothorax. No pleural effusion. MEDIASTINUM AND HILAR STRUCTURES: No masses. Contour normal. HEART AND VASCULAR STRUCTURES: Heart normal in size. Normal vasculature. BONES: No acute findings. HARDWARE: None in the chest. OTHER: No other significant finding. IMPRESSION: NO ACUTE RADIOGRAPHIC FINDING IN THE CHEST. TECHNICAL DOCUMENTATION: JOB ID: [id number] 2010 [employer]- All Rights Reserved Reading location - IP/workstation name: [email or web address]
[2020-02-03 14:45] LABS: A TYPE INFLUENZA AG NEGATIVE (NEGATIVE); B INFLUENZA AG NEGATIVE (NEGATIVE)
[2020-02-03] MEDS ORDERED: IPRATROPIUM/ALBUTEROL 0.5-2.5 MG/3 ML AMPUL NEB ONE ×2 (15:11→16:44)
[2020-02-03] MEDS ORDERED: ALBUTEROL SULFATE HFA (90 MCG/PUFF) 8 GM MDI (1 MDI/ER DISP) IH PRN (16:43)
[2020-02-03] MEDS ORDERED: AZITHROMYCIN 250 MG TABLET PO ONE (16:43)
[2020-02-03] MEDS ORDERED: PREDNISONE 20 MG TABLET PO ONE (16:44)
[2020-02-03 17:06] VITALS: BP 131/73
[2020-02-03] MEDS ORDERED: CIPROFLOXACIN HCL/DEXAMETH OTIC DROP 7.5 ML AU ONE (17:22)
--- NOTE | 2020-02-03 17:25 | ER Document Report ---
ED Respiratory Problem - General Chief Complaint: Productive Cough Stated Complaint: COUGH,CONGESTION,SHORT OF BREATH Time Seen by Provider: 02/03/20 13:55 Primary Care Provider: [facility] [Provider Group] - Follow up in 1 week Notes: Patient is a 25-year-old male who presents to the emergency department with a chief complaint of cough. Patient states that his cough started about a week ago. He denies any fever, body aches, or chills. States that he has bilateral ear pain. Denies any past medical history. He does not take any medications on regular basis. TRAVEL OUTSIDE OF THE [place] IN LAST 30 DAYS: No - Related Data Allergies/Adverse Reactions: No Known Allergies Allergy (Verified 02/03/20 13:42) Past Medical History - Social History Smoking Status: Current Every Day Smoker Chew tobacco use (# tins/day): No Frequency of alcohol use: None Drug Abuse: Marijuana Family History: Reviewed & Not Pertinent Patient has homicidal ideation: No Pulmonary Medical History: Reports: Hx Asthma - has not used inhaler since age 11 Renal/ Medical History: Denies: Hx Peritoneal Dialysis - Immunizations Hx Diphtheria, Pertussis, Tetanus Vaccination: Yes Review of Systems - Review of Systems Notes: REVIEW OF SYSTEMS: CONSTITUTIONAL : Denies recent illness. Denies recent unintentional weight loss. Denies fever, chills, or sweats. EENT: See HPI. CARDIOVASCULAR: Denies chest pain. RESPIRATORY: See HPI. GASTROINTESTINAL: Denies nausea, vomiting, and diarrhea. Denies abdominal pain. Denies constipation. GENITOURINARY: Denies difficulty urinating, burning, blood in urine, urgency or frequency. MUSCULOSKELETAL: Denies neck and back pain. Denies joint pain or swelling. SKIN: Denies rash, itchiness, or lesions HEMATOLOGIC : Denies easy bruising or bleeding. LYMPHATIC: Denies swollen, painful, enlarged glands. NEUROLOGICAL: Denies no numbness or tingling denies weakness. Denies headache. Denies altered mental status. Denies alteration in speech. PSYCHIATRIC: Denies stress, anxiety, alteration in sleep patterns, or depression. All other systems reviewed and negative. Physical Exam - Vital signs Vitals: Temp Pulse Resp BP Pulse Ox 98.9 F 85 18 152/99 H 95 02/03/20 13:18 02/03/20 13:18 02/03/20 13:18 02/03/20 13:18 02/03/20 13:18 - Notes Notes: PHYSICAL EXAMINATION: GENERAL: Appears well, healthy, well-nourished, no acute distress. HEAD: Normocephalic, atraumatic. EYES: PERRL, conjunctiva normal, all extraocular movements intact, sclera nonicteric ENT: Moist mucous membranes. NECK: Supple, no noticeable swelling, redness, rash. Normal range of motion. LUNGS: Expiratory wheezes noted throughout all lung barton. CARDIOVASCULAR: S1-S2, regular rate, regular rhythm. Radial pulses 2+, normal. ABDOMEN: Normoactive bowel sounds. Soft, nontender, no guarding, no rebound tenderness, and no masses palpated. EXTREMITIES: Normal strength and range of motion, no pitting or edema. No cyanosis. NEUROLOGICAL: Moves all extremities upon command. Strength 5/5 in all extremities. PSYCH: Normal mood, normal affect. SKIN: Warm, dry. No rash, lesions, ulcerations noted. Normal skin turgor. Course - Re-evaluation Re-evalutation: 02/03/20 17:39 Chest x-ray is unremarkable. No pneumonia or pneumothorax noted. Flu and strep tests are negative. Patient's physical exam is consistent with bilateral otitis media with bilateral otitis externa. Will place the patient on on azithromycin. We will also send him home with an albuterol inhaler. Patient's lung sounds better after third DuoNeb and prednisone. He will follow-up with [facility]. He is in agreement with this plan. Follow-up precautions were given. Verbal discharge instructions were given to the patient. They verbalized understanding. They are stable for discharge. - Vital Signs Vital signs: Temp Pulse Resp BP Pulse Ox 98.2 F 83 16 131/73 H 98 02/03/20 16:38 02/03/20 16:38 02/03/20 16:38 02/03/20 16:38 02/03/20 16:38 Discharge - Discharge Clinical Impression: Cough, Suspected COVID-19 virus infection Bilateral otitis media Qualifiers: Otitis media type: mucoid Chronicity: acute Qualified Code(s): H65.113 - Acute and subacute allergic otitis media (mucoid) (sanguinous) (serous), bilateral Condition: Stable Disposition: HOME, SELF-CARE Instructions: COVID-19 Guidance for Persons Under Investigation Additional Instructions: You were seen today in emergency department for a cough and ear pain. Your flu was negative. The rapid strep test was also negative. You are being tested for COVID-19. The health department will call you with your results. Please stay in quarantine until your results come back. You also have an ear infection in both ears. Take your antibiotics as prescribed. Use the albuterol inhaler for your shortness of breath. Take 2 puffs every 4-6 hours for the next 48 hours to help you with your shortness of breath. If you have worsening symptoms, return to the emergency department. You also have an outer ear infection. Place 4 drops to your right ear and let the drops today and therefore 10 minutes and then placed 4 drops in your left ear and let them sit there for 10 minutes. Follow-up with [facility] or [facility] in regards to this visit. Prescriptions: Prednisone [Deltasone 20 mg Tablet] 3 tab PO DAILY 4 Days #12 tablet Azithromycin [Zithromax 250 mg Tablet] 250 mg PO DAILY #4 tablet Referrals: [facility] [Provider Group] - Follow up in 1 week
== END 2020-02-03 17:47 | disposition home or self-care (01) ==
LOC: ER 13:11
DX: R05 Cough (principal); H65.113 Acute and subacute allergic otitis media (mucoid) (sanguinous) (serous), bilateral; H60.93 Unspecified otitis externa, bilateral; F17.200 Nicotine dependence, unspecified, uncomplicated; J45.909 Unspecified asthma, uncomplicated; F12.10 Cannabis abuse, uncomplicated; Z20.828 Contact with and (suspected) exposure to other viral communicable diseases
CPT/HCPCS: 94640 ×2; 99284; 87070; 87880; 87635; 87804; 71045; J7512; J3490 ×2; C9803

== ENCOUNTER 2020-03-14 10:52 | Emergency (ER) | payer SELFPAY ==
--- NOTE | 2020-03-14 11:16 | ER Document Report ---
ED Medical Screen (RME) - General Chief Complaint: Chest Pain Stated Complaint: LOSS OF TASTE/ SMELL, CHEST PAIN Time Seen by Provider: 03/14/20 11:10 Notes: Patient presents complaining of chest pain and cough with generalized fatigue. Patient also reports loss of taste and smell. Patient states he is having chest discomfort for the past 2 days. Patient reports having a negative Covid test last week. Patient does report recent exposure to multiple people who have tested positive. I have greeted and performed a rapid initial assessment of this patient. A comprehensive ED assessment and evaluation of the patient, analysis of test r esults and completion of the medical decision making process will be conducted by additional ED providers. TRAVEL OUTSIDE OF THE [place] IN LAST 30 DAYS: No - Related Data Allergies/Adverse Reactions: No Known Allergies Allergy (Verified 03/14/20 11:12) Past Medical History Pulmonary Medical History: Reports: Hx Asthma - has not used inhaler since age 11 Renal/ Medical History: Denies: Hx Peritoneal Dialysis - Immunizations Hx Diphtheria, Pertussis, Tetanus Vaccination: Yes Physical Exam - Respiratory Respiratory status: No respiratory distress Chest status: Tender Breath sounds: Nonproductive cough
--- NOTE | 2020-03-14 12:02 | RADIOLOGY REPORT (SQ) ---
EXAM DESCRIPTION: CHEST SINGLE VIEW IMAGES COMPLETED DATE/TIME: 03/14/2020 11:46 am REASON FOR STUDY: cp COMPARISON: 02/03/2020 EXAM PARAMETERS: NUMBER OF VIEWS: One view. TECHNIQUE: Single frontal radiographic view of the chest acquired. RADIATION DOSE: NA LIMITATIONS: None. FINDINGS: LUNGS AND PLEURA: Mild retrocardiac opacities on the left. No pleural effusion or pneumot horax pre MEDIASTINUM AND HILAR STRUCTURES: No masses. Contour normal. HEART AND VASCULAR STRUCTURES: Heart normal in size. Normal vasculature. BONES: No acute findings. HARDWARE: None in the chest. OTHER: No other significant finding. IMPRESSION: Mild left retrocardiac opacities, possibly atelectasis or airspace disease. TECHNICAL DOCUMENTATION: JOB ID: [id number] 2010 [employer]- All Rights Reserved Reading location - IP/workstation name: [email or web address]
--- NOTE | 2020-03-14 13:44 | ER Document Report ---
Entered by LUCY PIAN SCRIBE 03/14/20 1250 Acting as scribe for:CINTHYA SCHROEDER MD ED General - General Chief Complaint: Nonproductive Cough Stated Complaint: LOSS OF TASTE/ SMELL, CHEST PAIN Time Seen by Provider: 03/14/20 11:10 Mode of Arrival: Ambulatory Information source: Patient Notes: This 25 year old male patient presents to the ED today for evaluation of symptoms related to COVID-19 that started x2 days ago. Patient reports loss of taste and smell, fever, sneezing, and body aches. Denies cough. He reports positive COVID exposure on 02/27 by a friend and then someone at work on 02/28. He states that he is currently staying with friends who most likely have it as well. TRAVEL OUTSIDE OF THE [place] IN LAST 30 DAYS: No - Related Data Allergies/Adverse Reactions: No Known Allergies Allergy (Verified 03/14/20 11:12) Home Medications: denies Past Medical History - General Information source: Patient, [facility] Records - Social History Smoking Status: Former Smoker Cigarette use (# per day): No Chew tobacco use (# tins/day): No Smoking Education Provided: No Frequency of alcohol use: Occasional Drug Abuse: None Family History: Reviewed & Not Pertinent Patient has suicidal ideation: No Patient has homicidal ideation: No Pulmonary Medical History: Reports: Hx Asthma - has not used inhaler since age 11 - Immunizations Hx Diphtheria, Pertussis, Tetanus Vaccination: Yes Review of Systems - Review of Systems Constitutional: See HPI, Fever EENT: See HPI, Nose discharge, Other - loss of taste/smell Cardiovascular: No symptoms reported Respiratory: See HPI. denies: Cough Gastrointestinal: No symptoms reported Genitourinary: No symptoms reported Male Genitourinary: No symptoms reported Musculoskeletal: See HPI, Muscle pain Skin: No symptoms reported Hematologic/Lymphatic: No symptoms reported Neurological/Psychological: No symptoms reported -: Yes All other systems reviewed and negative Physical Exam - Vital signs Vitals: Temp Pulse Resp BP Pulse Ox 97.9 F 75 18 152/89 H 98 03/14/20 11:11 03/14/20 11:11 03/14/20 11:11 03/14/20 11:11 03/14/20 11:11 - General General appearance: Alert In distress: None - HEENT Head: Normocephalic, Atraumatic Eyes: Normal Pupils: PERRL - Respiratory Respiratory status: No respiratory distress Chest status: Nontender Breath sounds: Normal Chest palpation: Normal - Cardiovascular Rhythm: Regular Heart sounds: Normal auscultation Murmur: No Friction rub: No Gallop: None auscultated - Abdominal Inspection: Morbidly Obese Distension: No distension Bowel sounds: Normal Tenderness: Nontender - Abdomen soft Organomegaly: No organomegaly - Back Back: Normal, Nontender - Extremities General upper extremity: Normal inspection General lower extremity: Normal inspection. No: Edema - Neurological Neuro grossly intact: Yes Orientation: AAOx4 [place] Coma Scale Eye Opening: Spontaneous [place] Coma Scale Verbal: Oriented [place] Coma Scale Motor: Obeys Commands [place] Coma Scale Total: 15 - Psychological Associated symptoms: Normal affect, Normal mood - Skin Skin Temperature: Warm Skin Moisture: Dry Skin Color: Normal Course - Re-evaluation Re-evalutation: 03/14/20 13:44 The patient was evaluated during the global COVID-19 pandemic and that diagnosis was suspected/considered upon their initial presentation. Their evaluation, treatment and testing was consistent with current guidelines for patients who present with complaints or symptoms that may be related to COVID-19. - Vital Signs Vital signs: Temp Pulse Resp BP Pulse Ox 97.8 F 66 18 138/81 H 100 03/14/20 13:59 03/14/20 13:59 03/14/20 13:59 03/14/20 13:59 03/14/20 13:59 Discharge - Discharge Clinical Impression: Loss of sense of smell, Loss of taste, Encounter for laboratory testing for COVID-19 virus Condition: Stable Disposition: HOME, SELF-CARE Instructions: COVID-19 Guidance for Persons Under Investigation Additional Instructions: Drink plenty of fluids get plenty rest. Self isolate at home until you get the results of your Covid testing. Take Tylenol and ibuprofen for generalized aches and pains. Follow-up with a local primary care provider if not improving over the next 1 to 2 weeks. Return to the emergency room if your breathing becomes difficult. RETURN TO THE EMERGENCY ROOM IF ANY NEW OR WORSENING SYMPTOMS. I personally performed the services described in the documentation, reviewed and edited the documentation which was dictated to the scribe in my presence, and it accurately records my words and actions.
[2020-03-14 14:00] VITALS: BP 138/81
== END 2020-03-14 14:00 | disposition home or self-care (01) ==
LOC: ER 10:52
DX: U07.1 COVID-19 (principal); R50.9 Fever, unspecified; R06.7 Sneezing; R43.8 Other disturbances of smell and taste; R07.9 Chest pain, unspecified; M79.10 Myalgia, unspecified site; J45.909 Unspecified asthma, uncomplicated; Z87.891 Personal history of nicotine dependence
CPT/HCPCS: 99284; 87635; 71045; C9803